=== PATIENT | male | born 1980 | race Caucasian/White ===

== ENCOUNTER 2024-04-13 08:16 | Outpatient (OUT) | payer BC, SELFPAY ==
--- NOTE | 2024-04-13 08:34 | XR_ITS ---
The [address] [address] Patient Name: ANAND ADKINS MRN: [id number] date: 1980 Sex: M Assigned Patient Location: LAB Current Patient Location: Accession/Order Number: [id number] Exam Date: 04/13/2024 08:45 Report Date: 04/15/2024 06:35 At the request of: GILMA RM Procedure: XR lumbar spine min 4V EXAMINATION: XR lumbar spine min 4V HISTORY: Low Back Pain COMPARISON: No relevant comparison available. FINDINGS: BONES: No significant spondylosis, scoliosis, fracture, or visible bony lesion. DISC SPACES: No significant disc height narrowing, subluxation, or endplate abnormality. PARASPINOUS: Negative. No paraspinous abnormality is seen. OTHER: Negative. XR/XR lumbar spine min 4V IMPRESSION: 1. Unremarkable lumbar spine. Electronically authenticated by: DARBY KAY Date: 04/15/2024 06:35
[2024-04-13 09:30] LABS: Alanine Aminotransferase 65 U/L (16-63); Albumin Globulin Ratio 1.2; Albumin Level 3.8 g/dL (3.4-5.0); Alkaline Phosphatase 56 U/L (46-116); Aspartate Amino Transferase 24 U/L (15-37); Bilirubin Total 0.5 mg/dL (0.2-1.0); Calcium 9.2 mg/dL (8.5-10.1); Chloride 105 mmol/L (98-107); Chol HDL Ratio 5.9; Cholesterol 178 mg/dL (<=200); Estimated GFR (African America >60 (>=60 mL/min/1.73m^2); Estimated GFR (Non-African Ame >60 (>=60 mL/min/1.73m^2); Globulin 3.1 g/dL; Glucose 98 mg/dL (74-106); HDL Cholesterol 30 mg/dL (40-60); Sodium 139 mmol/L (136-145); Thyroid Stimulating Hormone 1.439 uIU/mL (0.358-3.740); Total Protein 6.9 g/dL (6.4-8.2); Triglycerides 314 mg/dL (<=150); VLDL CHOLESTEROL 62.8 mg/dL
== END 2024-04-13 08:17 | disposition home or self-care (01) ==
LOC: LAB 08:20
PROVIDERS: PCP Nurse Practitioner; Visit Provider Nurse Practitioner
DX: Z00.00 Encounter for general adult medical examination without abnormal findings (principal); R79.89 Other specified abnormal findings of blood chemistry; M54.50 Low back pain, unspecified
CPT/HCPCS: 36415; 72110; 80053; 80061; 84443

== ENCOUNTER 2024-07-09 12:22 | Outpatient (OUT) | payer BC, SELFPAY ==
--- NOTE | 2024-07-09 12:37 | XR_ITS ---
[address] [address] Patient Name: ANAND ADKINS MRN: [id number] date: 1980 Sex: M Assigned Patient Location: [facility] Current Patient Location: Accession/Order Number: [id number] Exam Date: 07/09/2024 12:32 Report Date: 07/10/2024 07:15 At the request of: GILMA RM Procedure: XR shoulder TATA min 2V EXAMINATION: XR shoulder TATA min 2V HISTORY: Bilateral shoulder pain COMPARISON: No relevant comparison available. FINDINGS: RIGHT FINDINGS: BONES: No acute fracture or dislocation. Moderate to severe acromioclavicular joint osteoarthritis. Mild glenohumeral joint osteoarthropathy. High riding humeral head suggests rotator cuff injury SOFT TISSUES: Negative. No visible soft tissue swelling. OTHER: Negative. LEFT FINDINGS: BONES: No acute fracture or dislocation. Mild periventricular joint osteoarthropathy SOFT TISSUES: Negative. No visible soft tissue swelling. OTHER: Negative. XR/XR shoulder TATA min 2V IMPRESSION: RIGHT CONCLUSION: Moderate osteoarthritis with high riding humeral head suggesting rotator cuff injury LEFT CONCLUSION: Mild osteoarthritis Electronically authenticated by: SILVINO CALIX Date: 07/10/2024 07:15
--- OUTSIDE RECORDS SUMMARY | 2024-07-09 12:44 | XMS_ITS | CCD ---
Author Organization [facility] Care Team Providers Care Workforce Advisor Name Role Phone DR MARIA ISABEL PELAYO Admitting Unavailable DR MARIA ISABEL PELAYO Attending Unavailable DR MARIA ISABEL PELAYO Primary Care Unavailable DR MARIA ISABEL PELAYO Consulting Unavailable Shruthi Kerns Unavailable MARIA ISABEL PELAYO Primary Care Physician Lilian Mcmahan Unavailable Teresa Martin Attending Unavailable Teresa Martin Attending Unavailable Allergies Allergy Classification Reported Allergen(s) Allergy Type Date of Onset Reaction(s) Facility (1 source) No Known Medication Allergies; Translations: [No Known Medication Allergies] Propensity to adverse reactions (disorder) [facility] Repository Medications Current Medications Medication Drug Class(es) Dates Sig (Normalized) Sig (Original) ALPRAZolam 0.25 mg oral tablet (1 source) Benzodiazepine ALPRAZolam 0.25 MG Oral for 15 Days Active escitalopram 10 mg oral tablet (1 source) Serotonin Reuptake Inhibitor Escitalopram Oxalate 10 MG Oral for 30 Days Active Multivitamin preparation (2 sources) Start: 10-12-2022 multivitamin Refill(s) 0 Start Date: 10/12/22 Status: Ordered turmeric extract 500 mg oral capsule (2 sources) Start: 10-12-2022 take 1 capsule by mouth every week turmeric 500 mg oral capsule 500 mg = 1 cap(s), qWeek, Refills(s) 0 Start Date: 10/12/22 Status: Ordered Vitamin B12 50 mcg oral tablet (2 sources) Start: 10-12-2022 take 1 tablet by mouth once daily Vitamin B12 50 mcg oral tablet 50 mcg = 1 tab(s), Oral, Daily, # 90 tab(s), Refills(s) 0 Start Date: 10/12/22 Status: Ordered Vitamin C 500 mg Tab (2 sources) Start: 10-12-2022 take 1 tablet by mouth once daily Vitamin C 500 mg Tab 500 mg = 1 tab(s), Oral, Daily, # 90 tab(s), Refills(s) 0 Start Date: 10/12/22 Status: Ordered Completed/Discontinued Medications Medication Drug Class(es) Dates Sig (Normalized) Sig (Original) Augmentin Tablets 875 MG (2 sources) Start: 01-27-2014 Augmentin Tablets 875 MG Take as directed By Mouth bid for 10 day(s) Jan, Not-Taking predniSONE 20 mg oral tablet (2 sources) Start: 03-13-2022 take 1 tablet by mouth every twelve hours predniSONE 20 MG 1 tablet Orally 2 times a day for 5 day(s) Mar, Not-Taking triamcinolone acetonide 40 mg/ml injectable suspension (5 sources) Corticosteroid Start: 01-24-2023 Kenalog-40 Jan, 80 mg Start: 03-13-2022 Kenalog-40 Mar, 40 mg Start: 06-24-2016 KENALOG - 10 m g Jun, 40 mg Problems Problem Classification Problem Date Documented Da te Episodic/Chronic Allergic reactions (2 sources) Allergic contact dermatitis due to plants, except food Onset: 03-13-2022 Resolved: 03-13-2022 Episodic Other upper respiratory infections (2 sources) Sinusitis; Translations: [Chronic infection of sinus NOS] Chronic Otitis media and related conditions (2 sources) Otitis; Translations: [Otitis] Episodic Results Test Name Value Interpretation Reference Range Facility Family Medicine Office/Clini c Noteon 04-10-2024 Family Medicine Office/Clinic Note Family Medicine Office/Clinic Note HPI Staff Rahul is a 43 year old male presenting with wellness visit. Health Maintenance: Colonoscopy: NA PSA: has not had one Last Labs: 10/12/22 He wants to get colonoscopy done order sent to [facility] He wants to see if he can get lower back xray is getting a lot of tightness and back pain History of Present Illness pt presents for wellness visit, has c/o low back pain desires colonoscopy at [facility] Review of Systems PHQ Score Initial Depression Screen Score: 0 SCORE Physical Exam Vitals & Measurements T: 36.6 ?C(Temporal Artery) HR: 80(Peripheral) RR: 18 BP: 142/86 SpO2: 98% HT: 76 in HT: 193.0 cm WT: 115.7 kg WT: 254.54 lb BMI: 31.06 General: alert, no acute distress ENMT: oral mucosa moist, no pharyngeal erythema or exudate Cardiovascular: regular rate and rhythm, normal peripheral perfusion Respiratory: Lungs CTA, respirations non labored Extremities: no deformity, no trauma Neurological: oriented x 4, LOC appropriate for age, CN II-XII intact, motor strength equal & normal bilaterally, speech normal Assessment/Plan 1. Wellness examination (Z00.00: Encounter for general adult medical examination without abnormal findings) pt presents today for wellness exam. pt does not need refills. would like to do labs at [facility]. Ordered: meloxicam, 15 mg = 1 tab(s), Oral, Daily, # 30 tab(s), Refills(s) 0, Pharmacy: [id number], 193, cm, 04/10/24 8:53:00 EDT, Height/Length Dosing, 115.7, kg, 04/10/24 8:53:00 EDT, Weight Dosing [facility] 2. Low back pain (M54.50: Low back pain, unspecified) x ray order provided. meloxicam sent Ordered: meloxicam, 15 mg = 1 tab(s), Oral, Daily, # 30 tab(s), Refills(s) 0, Pharmacy: [id number], 193, cm, 04/10/24 8:53:00 EDT, Height/Length Dosing, 115.7, kg, 04/10/24 8:53:00 EDT, Weight Dosing [facility] 3. Colon cancer screening (Z12.11: Encounter for screening for malignant neoplasm of colon) referral sent to [facility] Ordered: meloxicam, 15 mg = 1 tab(s), Oral, Daily, # 30 tab(s), Refills(s) 0, Pharmacy: [id number], 193, cm, 04/10/24 8:53:00 EDT, Height/Length Dosing, 115.7, kg, 04/10/24 8:53:00 EDT, Weight Dosing [facility] 4. Hypertriglyceridemia (E78.1: Pure hyperglyceridemia) lab order provided Ordered: meloxicam, 15 mg = 1 tab(s), Oral, Daily, # 30 tab(s), Refills(s) 0, Pharmacy: [facility]/pharmacy #[id number], 193, cm, 04/10/24 8:53:00 EDT, Height/Length Dosing, 115.7, kg, 04/10/24 8:53:00 EDT, Weight Dosing [facility] 5. Elevated BUN (R79.9: Abnormal finding of blood chemistry, unspecified) lab order provided Ordered: meloxicam, 15 mg = 1 tab(s), Oral, Daily, # 30 tab(s), Refills(s) 0, Pharmacy: [facility]/pharmacy #[id number], 193, cm, 04/10/24 8:53:00 EDT, Height/Length Dosing, 115.7, kg, 04/10/24 8:53:00 EDT, Weight Dosing [facility] 6. Non-smoker (Z78.9: Other specified health status) continue not smoking Ordered: meloxicam, 15 mg = 1 tab(s), Oral, Daily, # 30 tab(s), Refills(s) 0, [id number] 193, cm, 04/10/24 8:53:00 EDT, Height/Length Dosing, 115.7, kg, 04/10/24 8:53:00 EDT, Weight Dosing 7. BMI 31.0-31.9,adult (Z68.31: Body mass index [BMI] 31.0-31.9, adult) BMI education given Ordered: meloxicam, 15 mg = 1 tab(s), Oral, Daily, # 30 tab(s), Refills(s) 0, [id number] 193, cm, 04/10/24 8:53:00 EDT, Height/Length Dosing, 115.7, kg, 04/10/24 8:53:00 EDT, Weight Dosing 8. Class 1 obesity due to excess calories in adult (E66.09: Other obesity due to excess calories) see above Ordered: meloxicam, 15 mg = 1 tab(s), Oral, Daily, # 30 tab(s), Refills(s) 0, Pharmacy: [facility]/pharmacy #[id number], 193, cm, 04/10/24 8:53:00 EDT, Height/Length Dosing, 115.7, kg, 04/10/24 8:53:00 EDT, Weight Dosing Follow-up No qualifying data available Problem List/Past Medical History Ongoing Colon cancer screening Elevated BUN Hypertriglyceridemia Low back pain Wellness examination Historical No qualifying data Procedure/Surgical History Repair of auditory canal or meatus of ear (06/28/1987). Medications meloxicam 15 mg Tab, 15 mg= 1 tab(s), Oral, Daily multivitamin turmeric 500 mg oral capsule, 500 mg= 1 cap(s), qWeek Vitamin B12 50 mcg oral tablet, 50 mcg= 1 tab(s), Oral, Daily Vitamin C 500 mg Tab, 500 mg= 1 tab(s), Oral, Daily Xanax 0.25 mg Tab, 0.25 mg= 1 tab(s), Oral, Daily, PRN Allergies No Known Medication Allergies Social History Alcohol - Denies Alcohol Use, 10/12/2022 Household alcohol concerns: No., 10/12/2022 Substance Abuse - Denies Substance Abuse, 10/12/2022 Household substance abuse concerns: No., 10/12/2022 Tobacco - Denies Tobacco Use, 10/12/2022 Never (less than 100 in lifetime) Tobacco Use:. Never Smokeless Tobacco Use:. Cigarettes, Household tobacco concerns: No., 04/10/2024 Family History Hypertension: Father and Brother. (more content not included)... Normal [facility] Comment on above: Result Comment: Elec tronically Signed By: Teresa Alba\.br\Date and Time Signed: 04/10/24 10:14 EDT CHEMISTRYOrdered By: SYSTEM SYSTEM on 10-12-2022 Albumin [Mass/Vol] 4.5 g/dL Normal 3.3 - 5.0 gm/dL [facility] Albumin/Globulin [Mass ratio] 1.4 {ratio} Normal 1.1 - 2.2 [facility] ALP [Catalytic activity/Vol] 51 [iU]/d Normal 21 - 98 Int._Unit/L [facility] ALT No additional P-5'-P [Catalytic activity/Vol] 38 [iU]/d Normal 6 - 46 Int._Unit/L [facility] Anion gap [Moles/Vol] 12 mmol/L Normal 6 - 16 mEq/L [facility] AST [Catalytic activity/Vol] 28 [iU]/d Normal 5 - 43 Int._Unit/L [facility] Bilirubin [Mass/Vol] 0.3 mg/dL Normal 0.0 - 1 .1 mg/dL [facility] Calcium [Mass/Vol] 9.7 mg/dL Normal 8.9 - 11. 1 mg/dL [facility] Chloride [Moles/Vol] 104 mmol/L Normal 101 - 1 11 mmol/L [facility] Cholesterol [Mass/Vol] 156 mg/dL Normal 120 - 200 mg/dL [facility] Cholesterol in HDL [Mass/Vol] 22 mg/dL Invalid Interpretation Code [facility] Cholesterol in LDL [Mass/Vol] 91 mg/dL Normal <=129mg/dL [facility] Cholesterol in VLDL [Mass/Vol] Unable to Calculate mg/dL Invalid Interpretation Code 7 - 40 mg/dL [facility] Comment on above: Result Comment: 'Paula ble to report. Trig >400 mg/dl' CO2 [Moles/Vol] 27 mmol/L Normal 21 - 31 mmol/L [facility] Creatinine [Mass/Vol] 1.1 mg/dL Normal 0.5 - 1.3 mg/dL [facility] GFR/1.73 sq M.predicted among blacks MDRD (S/P/Bld) [Vol rate/Area] mL/min/1.73 m2 Normal >=59mL/min/1 .73 m2 [facility] S GFR/1.73 sq M.predicted among non-blacks MDRD (S/P/Bld) [Vol rate/Area] mL/min/1.73 m2 Normal >=59mL/min/1 .73 m2 [facility] S Globulin (S) [Mass/Vol] 3.1 g/dL Normal 1.4 - 4.0 gm/dL [facility] Glucose [Mass/Vol] 93 mg/dL Normal 55 - 199 mg/dL [facility] Potassium [Moles/Vol] 4.9 mmol/L Normal 3.5 - 5.3 mmol/L [facility] Protein [Mass/Vol] 7.6 g/dL Normal 6.0 - 7.8 gm/dL [facility] Sodium [Moles/Vol] 138 mmol/L Normal 135 - 145 mmol/L [facility] Triglyceride [Mass/Vol] 406 mg/dL High <=149mg/dL [facility] Troponin I.cardiac [Mass/Vol] 2.80 pg/mL Low 15.90 - 38.40 pg/mL [facility] TSH Qn 1.73 m[IU]/L Normal 0.34 - 5.60 mcIU/mL [facility] Urea nitrogen [Mass/Vol] 26 mg/dL High 5 - 21 mg/dL [facility] Urea nitrogen/Creatinine [Mass ratio] 24 mg/mg High 10 - 20 [facility] HEMATOLOGYOrdered By: [employer] SYSTEM on 10-12-2022 Basophils/100 WBC (Bld) 0.7 % Normal 0.0 - 2.0 % [facility] Basophils/Leukocytes Auto (Bld) [Pure # fraction] 0.1 E9/L Normal 0.0 - 0.2 E9/L [facility] Eosinophils/100 WBC (Bld) 2.3 % Normal 0.0 - 8.0 % [facility] Eosinophils/Leukocyt es Auto (Bld) [Pure # fraction] 0.2 E9/L Normal 0.0 - 0.5 E9/L [facility] Lymphocytes/100 WBC (Bld) 34.0 % Normal 14.0 - 50.0 % [facility] Lymphocytes/Leukocyt es Auto (Bld) [Pure # fraction] 3.2 E9/L Normal 1.0 - 4.0 E9/L [facility] Monocytes/100 WBC (Bld) 8.9 % Normal 4.0 - 14.0 % [facility] Monocytes/Leukocytes Auto (Bld) [Pure # fraction] 0.8 E9/L Normal 0.2 - 1.0 E9/L [facility] Neutrophils/100 WBC (Bld) 54.1 % Normal 36.0 - 75.0 % [facility] Neutrophils/Leukocyt es Auto (Bld) [Pure # fraction] 5.1 E9/L Normal 2.0 - 7.5 E9/L [facility] HEMATOLOGYOrdered By: Jacklyn Leos on 10-12-2022 Erythrocyte distribution width (RBC) [Ratio] 13.1 % Normal 10.9 - 14.2 % [facility] Hematocrit (Bld) [Volume fraction] 46.0 % Normal 37.7 - 49.0 % [facility] Hemoglobin (Bld) [Mass/Vol] 16.1 g/dL Normal 13.5 - 17.5 gm/dL [facility] MCH (RBC) [Entitic mass] 30.4 pg Normal 27.0 - 34.0 pg [facility] MCHC (RBC) [Mass/Vol] 34.9 g/dL Normal 31.4 - 36.0 gm/dL [facility] MCV (RBC) [Entitic vol] 87.0 fL Normal 80.0 - 100.0 fL [facility] Platelet mean volume (Bld) [Entitic vol] 7.7 fL Normal 6.4 - 10.8 fL [facility] Platelets (Bld) [#/Vol] 217.0 E9/L Normal 150.0 - 500.0 E9/L [facility] RBC (Bld) [#/Vol] 5.3 E12/L Normal 4.3 - 5.9 E12/L [facility] WBC corrected for nucl RBC Auto (Bld) [#/Vol] 9.4 E9/L Normal 4.0 - 11.0 E9/L [facility] CBC AUTO DIFFon 09-25-2021 BASO # 0.1 103/ul Normal 0.0-0.1 [facility] Comment on above: Performed By: #### C BC #### [facility] [address] [place] [address] Dr. Tristin Lyles Basophils/100 WBC (Bld) 1.1 % Normal 0.2-2.0 [facility] Comment on above: Performed By: #### C BC #### [facility] [address] [address] [address] Tristin Lyles EO # 0.2 103/ul Normal 0.0-0.7 [facility] Comment on above: Performed By: #### C BC #### [facility] [address] [address] [address] Tristin Lyles Eosinophils/100 WBC (Bld) 3.2 % Normal 0.9-7.0 [facility] Comment on above: Performed By: #### C BC #### [facility] [address] [place] [address] Dr. Tristin Lyles Erythrocyte distribution width (RBC) [Ratio] 12.6 % Normal 11.0-15.0 [facility] Comment on above: Performed By: #### C BC #### [facility] [address] [place] [address] Dr. Tristin Lyles Hematocrit (Bld) [Volume fraction] 47.6 % Normal 42.0-54.0 [facility] Comment on above: Performed By: #### C BC #### [facility] [address] [place] [address] Dr. Tristin Lyles Hemoglobin (Bld) [Mass/Vol] 16.0 g/dL Normal 14.0-18.0 [facility] Comment on above: Performed By: #### C BC #### [facility] [address] [place] [address] Dr. Tristin Lyles IG # 0.01 10e3/ul Normal 0.00-0.03 [facility] Comment on above: Performed By: #### C BC #### [facility] [address] [place] [address] Dr. Tristin Lyles IG % 0.1 % Normal 0.0-0.5 [facility] Comment on above: Performed By: #### C BC #### [facility] [address] [place] [address] Dr. Tristin Lyles LYMPH # 3.0 103/ul Normal 1.2-3.8 [facility] Comment on above: Performed By: #### C BC #### [facility] [address] [place] [address] Dr. Tristin Lyles Lymphocytes/100 WBC (Bld) 39.4 % Normal 20.5-60.0 [facility] Comment on above: Performed By: #### C BC #### [facility] [address] [place] [address] Dr. Tristin Lyles MANUAL DIFF REQ NO Normal [facility] Comment on above: Performed By: #### C BC #### [facility] [address] [place] [address] Dr. Tristin Lyles MCH (RBC) [Entitic mass] 29.3 pg Normal 25.9-34.0 [facility] Comment on above: Performed By: #### C BC #### [facility] [address] [place] [address] Dr. Tristin Lyles MCHC (RBC) [Mass/Vol] 33.6 g/dL Normal 29.9-35.2 [facility] Comment on above: Performed By: #### C BC #### [facility] [address] [place] [address] Dr. Tristin Lyles MCV (RBC) [Entitic vol] 87.2 fL Normal 80.0-94.0 [facility] Comment on above: Performed By: #### C BC #### [facility] [address] [place] [address] Dr. Tristin Lyles MONO # 0.7 103/ul Normal 0.3-0.8 [facility] Comment on above: Performed By: #### C BC #### [facility] [address] [place] [address] Dr. Tristin Lyles Monocytes/100 WBC (Bld) 8.8 % Normal 1.7-12.0 [facility] Comment on above: Performed By: #### C BC #### [facility] [address] [place] [address] Dr. Tristin Lyles NEUT # 3.6 103/ul Normal 1.4-6.5 [facility] Comment on above: Performed By: #### C BC #### [facility] [address] [place] [address] Dr. Tristin Lyles Neutrophils/100 WBC (Bld) 47.4 % Normal 43.0-75.0 [facility] Comment on above: Performed By: #### C BC #### [facility] [address] [place] [address] Dr. Tristin Lyles Platelet mean volume (Bld) [Entitic vol] 9.6 fL Normal 9.5-13.5 [facility] Comment on above: Performed By: #### C BC #### [facility] [address] [place], [place] [address] Dr. Tristin Lyles PLT 227 103/ul Normal 150-450 [facility] Comment on above: Performed By: #### C BC #### [facility] [address] [address] [address] Tristin Lyles RBC 5.46 106/ul Normal 4.70-6.10 [facility] Comment on above: Performed By: #### C BC #### [facility] [address] [place] [address] Dr. Tristin Lyles WBC 7.5 103/ul Normal 4.0-11.0 [facility] Comment on above: Performed By: #### C BC #### [facility] [address] [place] [address] Dr. Tristin Lyles LIPID PROFILEon 09-25-2021 CHOL-HDL RATIO NORM SEE BELOW Normal [facility] Comment on above: Result Comment: 3.3 - 4.4 LOW RISK 4.4 - 7.1 AVERAGE RISK 7.1 - 11.0 MODERATE RISK >11.0 HIGH RISK Performed By: #### C MP, LIPID #### [facility] [address] [place] [address] Dr. Tristin Lyles Cholesterol [Mass/Vol] 175 mg/dL Normal <=200 [facility] Comment on above: Performed By: #### C MP, LIPID #### [facility] [address] [place] [address] Dr. Tristin Lyles Cholesterol in HDL [Mass/Vol] 28 mg/dL Critically low 40-60 [facility] Comment on above: Performed By: #### C MP, LIPID #### [facility] [address] [address] [address] Tristin Lyles Cholesterol in LDL [Mass/Vol] 85.4 mg/dL Normal [facility] Comment on above: Performed By: #### C MP, LIPID #### [facility] [address] [place] [address] Dr. Tristin Lyles Cholesterol.total/Ch olesterol in HDL [Mass ratio] 6.3 {ratio} Normal [facility] Comment on above: Performed By: #### C MP, LIPID #### [facility] [address] [address] [address] Tristin Lyles HDL NORMAL > or = 60 mg/dl - LO W CARDIOVASCULAR RISK <40 mg/dl - HIGH CARDIOVASCULAR RISK Normal [facility] Comment on above: Performed By: #### C MP, LIPID #### [facility] [address] [address] [address] Tristin Lyles LDL CALC NORMAL SEE BELOW Normal [facility] Comment on above: Result Comment: <100 mg/dl OPTIMAL 100 - 129 mg/dl NEAR OR ABOVE OPTIMAL 130 - 159 mg/dl BORDERLINE HIGH 160 - 189 mg/dl HIGH >190 mg/dl VERY HIGH Performed By: #### C MP, LIPID #### [facility] [address] [address] [address] Tristin Lyles Triglyceride [Mass/Vol] 308 mg/dL Critically high <=150 [facility] Comment on above: Performed By: #### C MP, LIPID #### [facility] [address] [address] [address] Tristin Lyles VLDL CALC 61.6 mg/dL Normal [facility] Comment on above: Performed By: #### C MP, LIPID #### [facility] [address] [place] [address] Dr. Tristin Lyles PROF 14(COMP METB)on 022 Albumin [Mass/Vol] 4.2 g/dL Normal 3.4-5.0 [facility] Comment on above: Performed By: #### C MP, LIPID #### [facility] [address] [place] [address] Dr. Tristin Lyles Albumin/Globulin [Mass ratio] 1.3 {ratio} Normal [facility] Comment on above: Performed By: #### C MP, LIPID #### [facility] [address] [place] [address] Dr. Tristin Lyles ALP [Catalytic activity/Vol] 68 U/L Normal 46-116 [facility] Comment on above: Performed By: #### C MP, LIPID #### [facility] [address] [address] [address] Tristin Lyles ALT [Catalytic activity/Vol] 54 U/L Normal 16-63 [facility] Comment on above: Performed By: #### C MP, LIPID #### [facility] [address] [address] [address] Tristin Lyles Anion gap [Moles/Vol] 12.7 mmol/L Normal [facility] Comment on above: Performed By: #### C MP, LIPID #### [facility] [address] [address] [address] Tristin Lyles AST [Catalytic activity/Vol] 31 U/L Normal 15-37 [facility] Comment on above: Performed By: #### C MP, LIPID #### [facility] [address] [place] [address] Dr. Tristin Lyles Bilirubin [Mass/Vol] 0.6 mg/dL Normal 0.2-1.3 [facility] Comment on above: Performed By: #### C MP, LIPID #### [facility] [address] [address] [address] Tristin Lyles Calcium [Mass/Vol] 9.0 mg/dL Normal 8.5-10.1 [facility] Comment on above: Performed By: #### C MP, LIPID #### [facility] [address] [address] [address] Tristin Lyles Chloride [Moles/Vol] 103 mmol/L Normal 98-107 [facility] Comment on above: Performed By: #### C MP, LIPID #### [facility] [address] [address] [address] Tristin Lyles CO2 [Moles/Vol] 28.3 mmol/L Normal 22.0-30.[address] [facility] Comment on above: Performed By: #### C MP, LIPID #### [facility] [address] [address] [address] Tristin Lyles Creatinine [Mass/Vol] 1.09 mg/dL Normal 0.66-1.25 [facility] Comment on above: Performed By: #### C MP, LIPID #### [facility] [address] [address] [address] Tristin Lyles EGFR-AF TURKS AND CAICOS ISLANDER >60 Normal >=60 [facility] Comment on above: Performed By: #### C MP, LIPID #### [facility] [address] [address] [address] Tristin Lyles EGFR-NON AF TURKS AND CAICOS ISLANDER >60 Normal >=60 [facility] Comment on above: Performed By: #### C MP, LIPID #### [facility] [address] [address] [address] Tristin Lyles Globulin (S) [Mass/Vol] 3.3 g/dL Normal [facility] Comment on above: Performed By: #### C MP, LIPID #### [facility] [address] [place] [address] Dr. Tristin Lyles Glucose [Mass/Vol] 86 mg/dL Normal 74-106 [facility] Comment on above: Performed By: #### C MP, LIPID #### [facility] [address] [address] [address] Tristin Lyles Potassium [Moles/Vol] 4.0 mmol/L Normal 3.4-5.0 [facility] Comment on above: Performed By: #### C MP, LIPID #### [facility] [address] [place] [address] Dr. Tristin Lyles Protein [Mass/Vol] 7.5 g/dL Normal 6.1-8.2 [facility] Comment on above: Performed By: #### C MP, LIPID #### [facility] [address] [place] [address] Dr. Tristin Lyles Sodium [Moles/Vol] 140 mmol/L Normal 137-145 [facility] Comment on above: Performed By: #### C MP, LIPID #### [facility] [address] [address] [address] Tristin Lyles Urea nitrogen [Mass/Vol] 15.0 mg/dL Normal 7.0-18.0 [facility] Comment on above: Performed By: #### C MP, LIPID #### [facility] [address] [address] [address] Tristin Lyles Urea nitrogen/Creatinine [Mass ratio] 13.8 mg/mg Normal [facility] Comment on above: Performed By: #### C MP, LIPID #### [facility] [address] [place] [address] Dr. Tristin Lyles Vital Signs Date Time Vital Sign Value Performing Clinician Facility 01-24-2023 18:25-0400 Body height 193.04 cm Lilian Mcmahan Other [facility] Other 01-24-2023 18:25-0400 Body mass index (BMI) [Ratio] 29.38 kg/m2 Lilian Mcmahan Other [facility] 01-24-2023 18:25-0400 Body temperature 98.4 [degF] Lilian Mcmahan Other [facility] 01-24-2023 18:25-0400 Body weight 109.5 kg Lilian Mcmahan Other [facility] 01-24-2023 18:25-0400 Diastolic blood pressure 84 mm[Hg] Lilian Mcmahan Other [facility] 01-24-2023 18:25-0400 Respiratory rate 18 /min Lilian Mcmahan Other [facility] 01-24-2023 18:25-0400 SaO2% (BldA) [Mass fraction] 97 % Lilian Mcmahan Other [facility] 01-24-2023 18:25-0400 Systolic blood pressure 145 mm[Hg] Lilian Mcmahan Other [facility] Other 09-03-2022 10:45-0400 Body height 193.04 cm Shruthi Kerns Other [facility] Other 03-13-2022 10:45-0400 Body mass index (BMI) [Ratio] 31.64 kg/m2 Shruthi Kerns Other [facility] Other 03-13-2022 10:45-0400 Body temperature 98.8 [degF] Shruthi Aguilarmond Other [facility] Other 03-13-2022 10:45-0400 Body weight 117.94 kg Shruthi Aguilarmond Other [facility] Other 03-13-2022 10:45-0400 Diastolic blood pressure 92 mm[Hg] Shruthi Aguilarmond Other [facility] Other 03-13-2022 10:45-0400 Respiratory rate 18 /min Shruthi Kerns Other [facility] Other 03-13-2022 10:45-0400 SaO2% (BldA) [Mass fraction] 98 % Shruthi Kerns Other [facility] Other 03-13-2022 10:45-0400 Systolic blood pressure 135 mm[Hg] Shruthi Aguilarmond Other [facility] Other Encounters Encounter Date Encounter Type Care Provider Facility Start: 07-09-2024 ambulatory Teresa L Veronica Facility: [facility] Start: 04-12-2024 ambulatory Teresa Veronica Facility:[facility] Start: 04-10-2024 End: 04-10-2024 ambulatory Teresa L Veronica Facility: [facility] Start: 01-24-2023 End: 01-24-2023 ambulatory Lilian Mcmahan Other [facility] Other Start: 01-24-2023 Office outpatient vi sit 15 minutes Lilian Mcmahan [facility] Start: 10-12-2022 ambulatory Facility:[id number] Start: 10-12-2022 End: 10-12-2022 Patient encounter procedure Teresa Tolliver Veronica [facility] Start: 03-13-2022 End: 03-13-2022 ambulatory Shruthi Kerns Other [facility] Other Start: 03-13-2022 Office outpatient ne w 20 minutes Shruthi Kerns [facility] Start: 09-30-2021 Encounter for genera l adult medical examination without abnormal findings DR MARIA ISABEL PELAYO [facility] Start: 09-25-2021 End: 09-26-[address] MARIA ISABEL PELAYO Facility:[facility] Start: 09-25-2021 End: 09-26-2021 Encounter for general adult medical examination without abnormal findings DR MARIA ISABEL PELAYO Facility:[facility] Procedures Date Procedure Procedure Detail Performing Clinician Start: 06-28-1987 Otoplasty of senior internal auditor y canal or meatus Teresa Cageab Comment on above: left ear canal recon struction Immunizations Immunization Date Immunization Notes Care Provider [facility] 04-19-2017 influenza virus vaccine, unspecified formulation Teresa Veronica [facility] NEGATED: Highlighted row has not occurred!10-12-2022 influenza virus vaccine, unspecified formulation Teresa Veronica [facility] NEGATED: Highlighted row has not occurred!10-12-2022 SARS-CoV-2 mRNA (tozinameran 5y-11y) vaccine Teresa Veronica [facility] Payers Date Payer Category Payer Unknown [id number] [id number] 1980 Unknown [id number] 1980 Unknown [id number] 1980 Unknown [id number] 1959 Unknown [id number] Unknown [id number] Social History Date Type Detail Facility Sex Assigned At [facility] Tobacco Household tobacc o concerns: No. [facility] Tobacco smoking status No Smoking Status Entered [facility] Evaluation note 01-24-2023 Note Date & Type Note Facility 01-24-2023 Evaluation note Encounter Date Diagnosis Assessment Notes Jan, Contact dermatitis due to poison tra (ICD-10 - L23.7) Discussed with patient rash is consistent with contact dermatitis. Discussed typical duration of contact dermatitis 1 to 3 weeks. Advised steroid will help with inflammation and itching but rash will take time to completely resolve. Will treat with Kenalog IM 80 mg given in office given widespread nature of rash, periorbital rash. May continue topical calamine or similar. Avoid scratching or picking at areas to avoid secondary infection. Keep areas clean with soap and water. Follow-up with family doctor if not gradually improving over the next 10 days, sooner if significantly worsening or changing appearance. Patient verbalized understanding of treatment plan. [facility] Other Evaluation note 03-13-2022 Note Date & Type Note Facility 03-13-2022 Evaluation note Encounter Date Diagnosis Assessment Notes Mar, Poison tra dermatitis (ICD-10 - L23.7) Poison tra allergy home care material was printed Drink plenty fluids, get plenty of rest. Take the prednisone as prescribed until gone. You may use Benadryl, 25 to 50 mg orally as needed for itching. You may continue to use calamine lotion to the rash to dry it up. Follow-up with your family physician if no improvement in 2 to 3 days. [facility] Other Evaluation + Plan note Note Date & Type Note Facility Evaluation + Plan note No data available for this section [facility] History general Narrative - Reported Note Date & Type Note Facility History general Narrative - Reported Type Surgical History PE tubes x14 [facility] Other History general Narrative - Reported Note Date & Type Note Facility History general Narrative - Reported Type Medical History anxiety Surgical History PE tubes x14 [facility] Other Hospital Discharge instructions Note Date & Type Note Facility Hospital Discharge instructions No data available for this section [facility] Progress note Note Date & Type Note Facility Progress note No data available for this section [facility] Summary Purpose Family History No Family History Records FoundNo Family History Records FoundNo Family History Records Found Advance Directives No Advanced Directives Records FoundNo Advanced Directives Records FoundNo Advanced Directives Records Found Additional Source Comments (unrecognized sect ion and content) No Status Records FoundNo Status Records FoundNo Status Records Found INFORMATION SOURCE (unrecogn ized section and content) DATE CREATED AUTHOR 10/01/2021 [facility] DATE CREATED AUTHOR AUTHOR'S ORGANIZ ATION 01/21/2023 [facility] DATE CREATED AUTHOR AUTHOR'S ORGANIZ ATION 07/09/2024 [facility] REASON FOR VISIT (unrecogniz ed section and content) JAJA ESQUIVEL Patient Care team informatio n (unrecognized section and content) Personnel Name: MARIA ISABEL PELAYO MD Address: Address: [address] [place] [address] Personnel Name: MARIA ISABEL PELAYO MD Address: Address: [address] [place] [address] FOR RECORDS PERTAINING TO PATIENTS WHO ARE OR HAVE BEEN ENROLLED IN A CHEMICAL DEPENDENCY/SUBSTANCEABUSE PROGRAM, SOME INFORMATION MAY BE OMITTED. This clinical summary was aggregated from multiple sources. Caution should be exercised in using it in the provision of clinical care. This summary normalizes information from multiple sources, and as a consequence, information in this document may materially change the coding, format and clinical context of patient data. In addition, data may be omitted in some cases. CLINICAL DECISIONS SHOULD BE BASED ON THE PRIMARY CLINICAL RECORDS. [facility] [employer] [facility]. provides no warranty or guarantee of the accuracy or completeness of information in this document.
== END 2024-07-09 12:23 | disposition home or self-care (01) ==
LOC: RAD 12:23
PROVIDERS: PCP Nurse Practitioner; Visit Provider Nurse Practitioner
DX: M25.511 Pain in right shoulder (principal); M25.512 Pain in left shoulder; M19.012 Primary osteoarthritis, left shoulder; M19.011 Primary osteoarthritis, right shoulder
CPT/HCPCS: 73030